=== PATIENT | male | born 1990 | race Caucasian/White ===

== ENCOUNTER 2019-11-21 14:50 | Emergency (ER) | payer BC ==
[~2019-11-21] VITALS: Ht 165.1 cm; Wt 59.1 kg
[2019-11-21 16:14] LABS: BASOPHILS # (AUTO) 0.1 X10'3 (0-0.2); BASOPHILS % (AUTO) 0.4 % (0-1); EOSINOPHILS # (AUTO) 0.1 X10'3 (0-0.9); EOSINOPHILS % (AUTO) 0.8 % (0-6); HEMATOCRIT 30.7 % (42.0-52.0); HEMOGLOBIN 10.2 g/dl (14.0-17.9); LYMPHOCYTES # (AUTO) 1.1 X10'3 (1.1-4.8); LYMPHOCYTES % (AUTO) 6.2 % (21-51); MEAN CORPUSCULAR HEMOGLOBIN 35.1 PG (27.0-31.0); MEAN CORPUSCULAR HGB CONC 33.1 g/dL (33.0-36.5); MEAN CORPUSCULAR VOLUME 105.9 FL (78-98); MEAN PLATELET VOLUME 9.9 FL (7.4-10.4); MONOCYTES # (AUTO) 1.7 X10'3 (0-0.9); MONOCYTES % (AUTO) 9.4 % (2-12); NEUTROPHILS # (AUTO) 14.8 X10'3 (1.8-7.7); NEUTROPHILS % (AUTO) 83.2 % (42-75); PLATELET COUNT 294 X10'3 (140-440); RED CELL DISTRIBUTION WIDTH 16.7 % (11.5-14.5); WHITE BLOOD COUNT 17.8 X10'3 (4.5-11.0)
[2019-11-21 16:23] LABS: ALANINE AMINOTRANSFERASE 109 U/L (12-78); ALBUMIN 1.7 G/DL (3.4-5.0); ALBUMIN/GLOBULIN RATIO 0.5 (1.1-1.5); ALKALINE PHOSPHATASE 413 IU/L (46-116); ANION GAP 8 (8-16); ASPARTATE AMINO TRANSFERASE 209 U/L (10-37); BILIRUBIN,TOTAL 2.4 MG/DL (0.1-1.0); BLOOD UREA NITROGEN 11 MG/DL (7-18); BUN/CREATININE RATIO 15.3 (5.4-32.0); CALCIUM 8.1 MG/DL (8.5-10.1); CHLORIDE 96 MMOL/L (99-107); CREATININE 0.72 MG/DL (0.60-1.10); GLUCOSE 105 MG/DL (70-104); LIPASE 625 U/L (73-393); MAGNESIUM 1.7 MG/DL (1.5-2.4); POTASSIUM 4.2 MMOL/L (3.5-5.1); SODIUM 128 MMOL/L (135-145); TOTAL CARBON DIOXIDE 24.1 MMOL/L (24-32); eGFR > 90 ML/MIN
--- NOTE | 2019-11-21 20:05 | NUR ---
Erick Sweeney; Pt friend, not in town, Not POA.
[2019-11-21] MEDS ORDERED: fentaNYL/PF 50MCG/1 ML 2ML syringe IV ONE (21:15)
[2019-11-21] MEDS ORDERED: ondansetron/PF 4mg/2ml inj IV ONE (21:15)
[2019-11-21] MEDS ORDERED: pantoprazole 40 MG vial IV ONE (21:15)
[2019-11-21] MEDS ORDERED: furosemide 10 MG/1 ML 10ml inj IV ONE (21:15)
[2019-11-21] MEDS ORDERED: FURO-150 PO (21:20)
[2019-11-21] MEDS ORDERED: PANT-47 PO (21:20)
[2019-11-21] MEDS ORDERED: ONDA4TAB6 PO (21:20)
[2019-11-21] MEDS ORDERED: OXYC10TA47 PO (21:20)
[2019-11-21 21:54] VITALS: BP 133/75
== END 2019-11-21 21:58 | disposition home or self-care (01) ==
LOC: ER 14:51
DX: R18.8 Other ascites (principal); R10.9 Unspecified abdominal pain; K86.1 Other chronic pancreatitis; K74.60 Unspecified cirrhosis of liver; R11.10 Vomiting, unspecified; Z60.2 Problems related to living alone; Z56.0 Unemployment, unspecified; Z59.0 Homelessness; Z88.5 Allergy status to narcotic agent; Z79.899 Other long term (current) drug therapy
CPT/HCPCS: 36415; 71045; 74176; 76700; 80053; 83690; 83735; 84145; 85025; 96374; 96375; 99285; C9113; J1940; J2405; J3010